=== PATIENT | female | born 1955 | race Caucasian/White ===

== ENCOUNTER 2017-06-08 10:06 | Emergency (ER) | payer BC ==
[~2017-06-08] VITALS: Ht 167.6 cm; Wt 68.5 kg
== END 2017-06-08 11:30 | disposition home or self-care (01) ==
LOC: ED 10:06
PROC: 2Y41X5Z Packing of Nasal Region using Packing Material (ICD-10-PCS; principal; 2017-06-08)
DX: R04.0 Epistaxis (principal); Z88.0 Allergy status to penicillin; Z88.5 Allergy status to narcotic agent; Z88.8 Allergy status to other drugs, medicaments and biological substances
CPT/HCPCS: 30901; 99282